=== PATIENT | female | born 1975 | race Caucasian/White ===

== ENCOUNTER 2017-06-28 20:26 | Emergency (ER) | payer OTHER ==
[2011-12-12 21:31] VITALS: BMI 32.0
[2017-06-28 20:41] LABS: APPEARANCE CLEAR (CLEAR); BILIRUBIN NEGATIVE (NEGATIVE); COLOR YELLOW (YELLOW); GLUCOSE NEGATIVE (NEGATIVE); KETONE NEGATIVE (NEGATIVE); NITRITE NEGATIVE (NEGATIVE); PROTEIN NEGATIVE (NEGATIVE); UROBILINOGEN NORMAL (NORMAL)
[2017-06-28 20:49] LABS: EPITHELIAL CELLS 0-5 /hpf (0-5); RED CELLS - URINE OCC /hpf (0-5); WHITE CELLS - URINE 0-5 /hpf (0-5)
[2017-06-28 20:50] LABS: BACTERIA MODERATE /hpf (NONE SEEN)
== END 2017-06-28 23:00 | disposition home or self-care (01) ==
LOC: D.ER 20:26
PROVIDERS: Emergency Medicine
DX: N76.0 Acute vaginitis (principal); B96.89 Other specified bacterial agents as the cause of diseases classified elsewhere

== ENCOUNTER 2017-07-21 11:50 | Emergency (ER) | payer OTHER ==
[2011-12-12 21:31] VITALS: BMI 32.0
[2017-07-21 12:27] LABS: BASOPHILS 0.2 % (0-2); EOSINOPHILS 1.4 % (0-7); HEMATOCRIT 36.8 % (36.0-48.0); HEMOGLOBIN 12.4 g/dL (12-16); IMMATURE GRANULOCYTES 0.2 % (0-5); LYMPHOCYTES 32.9 % (15-50); MCHC 33.7 g/dL (31.0-37.0); MCV 89.1 fL (80.0-100.0); MEAN PLATELET VOLUME 9.7 fL (7.4-10.4); MONOCYTES 9.8 % (2-11); NEUTROPHILS 55.5 % (40-80); PLATELET COUNT 210 10x3/uL (130-400); RBC 4.13 10x6/uL (4.00-5.40); RDW 15.5 % (11.5-14.5)
[2017-07-21 12:39] LABS: ALBUMIN 3.8 g/dL (3.4-5.0); ANION GAP 8.7 mmol/L (8-16); BILIRUBIN - TOTAL 0.4 mg/dL (0.2-1.3); CALCIUM 9.1 mg/dL (8.5-10.1); CREATININE - SERUM 0.9 mg/dL (0.6-1.3); POTASSIUM - SERUM 3.7 mmol/L (3.5-5.1); PROTEIN - SERUM 8.3 g/dL (6.4-8.2)
[2017-07-21 12:47] LABS: APPEARANCE HAZY (CLEAR); BACTERIA MODERATE /hpf (NONE SEEN); BILIRUBIN NEGATIVE (NEGATIVE); COLOR YELLOW (YELLOW); GLUCOSE NEGATIVE (NEGATIVE); KETONE NEGATIVE (NEGATIVE); MUCUS >1+ /lpf (NONE SEEN); NITRITE NEGATIVE (NEGATIVE); PROTEIN 1+ mg/dL (NEGATIVE); RED CELLS - URINE OCC /hpf (0-5); SPECIFIC GRAVITY 1.015 (1.005-1.020); WHITE CELLS - URINE RARE /hpf (0-5)
== END 2017-07-21 14:31 | disposition home or self-care (01) ==
LOC: D.ER 11:50
PROVIDERS: Emergency Medicine
DX: R10.9 Unspecified abdominal pain (principal); R11.10 Vomiting, unspecified; R11.0 Nausea; F17.200 Nicotine dependence, unspecified, uncomplicated

== ENCOUNTER 2017-11-24 02:03 | Emergency (ER) | payer SELFPAY ==
[2011-12-12 21:31] VITALS: BMI 32.0
== END 2017-11-24 03:40 | disposition home or self-care (01) ==
LOC: D.ER 02:03
DX: M62.838 Other muscle spasm (principal)

== ENCOUNTER → 2018-02-09 15:07 | Outpatient (CLI) | payer MEDICAID ==
[2011-12-12 21:31] VITALS: BMI 32.0
== END | disposition home or self-care (01) ==
LOC: D.RAD 15:07
DX: M54.14 Radiculopathy, thoracic region (principal)

== ENCOUNTER 2019-05-26 22:20 | Emergency (ER) | payer OTHER ==
[~2019-05-26] VITALS: Ht 167.6 cm; Wt 98.2 kg
[2019-05-26 22:27] VITALS: Ht 167.6 cm; Wt 98.2 kg
[2019-05-26] MEDS ORDERED: NORVASC5 MG PO (22:29)
[2019-05-27] MEDS ORDERED: TORADOL10 MG PO (01:11)
[2019-05-27 01:26] VITALS: BP 128/71
== END 2019-05-27 01:28 | disposition home or self-care (01) ==
LOC: D.ER 22:20
DX: M79.605 Pain in left leg (principal); Z86.718 Personal history of other venous thrombosis and embolism

== ENCOUNTER 2019-08-03 09:30 | Emergency (ER) | payer SELFPAY ==
[~2019-08-03] VITALS: Ht 165.1 cm; Wt 97.7 kg
[~2019-08-03 09:30] MED LIST: NORVASC5 MG PO; TORADOL10 MG PO
[2019-08-03 09:35] VITALS: Ht 165.1 cm; Wt 97.7 kg
[2019-08-03 10:32] LABS: APPEARANCE CLEAR (CLEAR); COLOR YELLOW (YELLOW)
[2019-08-03 10:33] LABS: BACTERIA FEW /hpf (NEGATIVE); BILIRUBIN NEGATIVE (NEGATIVE); EPITHELIAL CELLS OCC /hpf (0-5); GLUCOSE NEGATIVE (NEGATIVE); KETONE NEGATIVE (NEGATIVE); NITRITE NEGATIVE (NEGATIVE); PROTEIN TRACE mg/dL (NEGATIVE); RED CELLS - URINE 0-5 /hpf (0-5); UROBILINOGEN NORMAL (NORMAL); WHITE CELLS - URINE RARE /hpf (NEGATIVE)
[2019-08-03 10:36] LABS: CALC OSMOLALITY 274 mosm/kg (275-300); CALCIUM 9.3 mg/dL (8.5-10.1); CHLORIDE - SERUM 105 mmol/L (98-107); CREATININE - SERUM 0.8 mg/dL (0.6-1.3); GLUCOSE 84 mg/dL (74-106); POTASSIUM - SERUM 4.2 mmol/L (3.5-5.1); SODIUM 138 mmol/L (136-145); UREA NITROGEN 12 mg/dL (7-18); eGFR NON AFRICAN AMERICAN 82 mL/min (90-120)
[2019-08-03 10:44] LABS: ALBUMIN 3.9 g/dL (3.4-5.0); ALKALINE PHOSPHATASE 70 U/L (46-116); ALT (SGPT) 19 U/L (10-68); AMYLASE - SERUM 65 U/L (25-115); BILIRUBIN - TOTAL 0.31 mg/dL (0.2-1.3); LIPASE 100 U/L (73-393); PROTEIN - SERUM 8.2 g/dL (6.4-8.2)
[2019-08-03 10:47] LABS: TROPONIN-I < 0.017 ng/mL (0.000-0.060)
[2019-08-03 10:53] LABS: HEMATOCRIT 35.7 % (36.0-48.0); HEMOGLOBIN 11.6 g/dL (12-16); MCH 30.6 pg (26.0-34.0); MCHC 32.5 g/dL (31.0-37.0); MCV 94.2 fL (80.0-100.0); MEAN PLATELET VOLUME 9.7 fL (7.4-10.4); PLATELET COUNT 211 10x3/uL (130-400); RBC 3.79 10x6/uL (4.00-5.40); RDW 13.7 % (11.5-14.5); WBC 3.6 10x3/uL (4.8-10.8)
[2019-08-03 12:01] LABS: EOSINOPHILS 1 % (0-7); LYMPHOCYTES 50 % (15-50); MONOCYTES 6 % (2-11); NEUTROPHILS 43 % (40-80); PLATELET ESTIMATE NORMAL
[2019-08-03] MEDS ORDERED: VOLTAREN75 MG PO (12:06)
[2019-08-03] MEDS ORDERED: ZOFRAN ODT4 MG/UDTAB PO (12:06)
[2019-08-03] MEDS ORDERED: ULTRAM50 MG PO (12:06)
[2019-08-03 12:58] VITALS: BP 136/81
== END 2019-08-03 12:59 | disposition home or self-care (01) ==
LOC: D.ER 09:30
PROVIDERS: Family Medicine
DX: N23 Unspecified renal colic (principal); M54.5 Low back pain; I10 Essential (primary) hypertension; Z86.718 Personal history of other venous thrombosis and embolism

== ENCOUNTER → 2019-08-15 17:03 | Outpatient (CLI) | payer BC ==
[2019-08-03 09:35] VITALS: BMI 35.8
[~2019-08-15 17:03] MED LIST changes: +HYDROCODON-ACE1 EAC7 PO; +ULTRAM50 MG PO; +VOLTAREN75 MG PO; +ZOFRAN ODT4 MG/UDTAB PO
== END | disposition home or self-care (01) ==
LOC: D.LABREF 17:03
PROVIDERS: ATTEND Urology
DX: N20.0 Calculus of kidney (principal)

== ENCOUNTER 2019-08-18 06:57 | Inpatient (IN) | payer BC ==
[~2019-08-18] VITALS: Ht 165.1 cm; Wt 105.2 kg
[2019-08-18 07:28] LABS: HEMATOCRIT 37.1 % (36.0-48.0); HEMOGLOBIN 12.7 g/dL (12-16); MCH 31.4 pg (26.0-34.0); MCHC 34.2 g/dL (31.0-37.0); MCV 91.8 fL (80.0-100.0); MEAN PLATELET VOLUME 9.4 fL (7.4-10.4); RBC 4.04 10x6/uL (4.00-5.40); RDW 13.8 % (11.5-14.5); WBC 4.2 10x3/uL (4.8-10.8)
[2019-08-18 07:59] VITALS: BP 119/75; BMI 37.3
--- NOTE | 2019-08-18 14:59 | NUR ---
1450-REC'D FROM RR. DROWSY, EASILY AROUSED BY VERBAL STIMULI. IV PATENT TO LEFT HAND AT KVO. REPORTS CRAMPING TO ABDOMEN. WATER AT BEDSIDE. CL IN EASY REACH
--- NOTE | 2019-08-18 15:05 | NUR ---
1504- SPOKE WITH SCHEDULING TO SCHEDULE KUB FOR Aug AT 1130. HAS F/U WITH DR. CEBALLOS Aug AT 0900.
--- NOTE | 2019-08-18 17:22 | NUR ---
1700-AMBULATED TO RESTROOM AND URINATED. CONTINUE TO REPORT PAIN 10/10 TO LEFT SIDE RADIATING TO MID ABD. DESCRIBES SHARP. NOTIFIED DR. CEBALLOS WITH PAIN. NEW ORDERS REC'D. SEE EMAR.
--- NOTE | 2019-08-18 17:23 | NUR ---
5380- AWAITING CALL BACK FROM MARIE TORRESHOT PACKER FOR ROOM.
--- NOTE | 2019-08-18 18:00 | NUR ---
1755- REPORT GIVEN TO 2218 NURSE. AWAITING ON ROOM TO BE CLEANED
--- NOTE | 2019-08-18 19:00 | NUR ---
PT LAYING IN BED COMPLAING OF N/V. REPORTED THAT SHE VOMITED DURING TRANSPORTATION. ROBM CHUNCKY EMESIS NOTED IN BAG. GAVE PRN ANTIMEDIC AND CALLED MD FOR FLUIDS. A/O WITH NO SIGNS OF ACUTE DISTRESS. IV TO THE RT HAND WITH NO REDNESS OR SWELLING. STRING COVERED WITH TAPE NOTED TO THE SUPRAPUBIC AREA. DENIES NO OTHER NEEDS AT THIS TIME. WILL CONTINUE TO MONITOR.
--- NOTE | 2019-08-18 20:46 | NUR ---
COMPLAINING OF 10/10 CHEST PAIN. REPORTS THAT IT IS A CONSTANT PRESSURE AND PAIN UPON INSPIRATION. OFFERED PAIN MEDS, REFUSED. RAPID INITIATED. EKG SHOWED SINUS RHYTHM. GAVE PRN MORPHINE AFTER EDUCATING PT. TELEMETRY PLACED. ABDOMINAL IMAGING PER MD REQUEST. WILL CONTINUE TO MONITOR.
[2019-08-18 21:07] LABS: BASOPHILS 0.1 % (0-2); EOSINOPHILS 0 % (0-7); HEMATOCRIT 36.3 % (36.0-48.0); HEMOGLOBIN 12.3 g/dL (12-16); IMMATURE GRANULOCYTES 0.2 % (0-5); LYMPHOCYTES 7.9 % (15-50); MCH 31.4 pg (26.0-34.0); MCHC 33.9 g/dL (31.0-37.0); MCV 92.6 fL (80.0-100.0); MEAN PLATELET VOLUME 9.4 fL (7.4-10.4); MONOCYTES 2.5 % (2-11); NEUTROPHILS 89.3 % (40-80); PLATELET COUNT 194 10x3/uL (130-400); RBC 3.92 10x6/uL (4.00-5.40); RDW 13.6 % (11.5-14.5)
[2019-08-18 21:12] LABS: APTT 24.9 SECONDS (22.8-39.4); INR 1.05 (0.85-1.17); PROTIME 13.7 SECONDS (11.6-15.0)
[2019-08-18 21:29] LABS: ALBUMIN 3.8 g/dL (3.4-5.0); ALKALINE PHOSPHATASE 60 U/L (46-116); ALT (SGPT) 17 U/L (10-68); CALCIUM 8.6 mg/dL (8.5-10.1); CARBON DIOXIDE 25.1 mmol/L (21.0-32.0); CHLORIDE - SERUM 104 mmol/L (98-107); CKMB 0.4 U/L (0.0-3.6); CREATINE KINASE 80 UL (21-215); CREATININE - SERUM 1.1 mg/dL (0.6-1.3); POTASSIUM - SERUM 4.4 mmol/L (3.5-5.1); PROTEIN - SERUM 8.3 g/dL (6.4-8.2); SODIUM 137 mmol/L (136-145); UREA NITROGEN 18 mg/dL (7-18); eGFR NON AFRICAN AMERICAN 57 mL/min (90-120)
[2019-08-18 21:34] LABS: CALC OSMOLALITY 278 mosm/kg (275-300); GLUCOSE 147 mg/dL (74-106); TROPONIN-I < 0.017 ng/mL (0.000-0.060)
--- NOTE | 2019-08-18 22:30 | NUR ---
RESTING IN BED COMFORTABLY. REPORTS THAT HER PAIN IS 3/10. STILL HAVING SOME NAUSEA. WILL CONTINUE TO MONITOR.
[2019-08-19 00:36] VITALS: BP 148/83; BMI 38.6
[2019-08-19 04:00] VITALS: BP 167/93
--- NOTE | 2019-08-19 04:00 | NUR ---
HAVE VOMITED X9 THROUGH OUT THE NIGHT. CALLED MD FOR ANIMEDIC PATCH. ALSO COMPLAINING OF ABDOMINAL PAIN. GAVE PRN PAIN MEDS. WILL CONTINUE TO MONITOR.
--- NOTE | 2019-08-19 08:30 | NUR ---
REQUESTED AND GIVNE 3MG MORPHINE SLOW IVP FOR C/O ABDOMINAL PAIN LEVEL 8. WILL MONITOR. AWAKE AND ALERT. ORIENTED X3. LUNGS ARE CLEAR BILATERALLY, NO COUGH NOTED. SKIN IS INTACT WITHOUT REDNESS. IV TO LEFT HAND IS PATENT WITHOUT REDNESS AT INSERTION SITE. DENIES NEEDS.
--- NOTE | 2019-08-19 09:27 | OP ---
PATIENT NAME: LONA WASHINGTON MEDICAL RECORD: [id number] :73 LOCATION:[id number] ADMISSION DATE:08/18/19 SURGEON: HUGO CEBALLOS MD DATE OF OPERATION: 08/18/2019 SURGEON: Hugo Ceballos MD ANESTHESIA: General anesthesia by Tayla Vilchis CRNA DIAGNOSIS: An 8-mm left lower pole renal stone. PROCEDURE: Cystoscopy, left ureteral stent insertion 6-Wallisian x 26 cm with string attached, left ESWL times 3000 shocks. FINDINGS: Radiodense left renal stone. BLOOD LOSS: None. CLINICAL HISTORY: This is a 44-year-old female, who presented with left-sided flank pain. She had on CT scan a large stone in the left kidney that was originally obstructing the left renal pelvis. She comes now to have a left ureteral stent placed and left ESWL of the stone. 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 DESCRIPTION OF PROCEDURE: The patient was placed in prone position on the treatment table. The stone was visualized under fluoroscopy. She was then given induction of general anesthesia. She was placed in stirrups and the stone was targeted in 2 planes and treatment was begun. Cystoscopy was performed using a 21-Wallisian cystoscope. She has single ureteral orifices on both sides with no bladder tumors being visible. A Sensor wire was placed into the left ureteral orifice and up to the left renal pelvis. Over the wire, we inserted the 6-Wallisian x 26 cm ureteral stent. Once the stent was in correct position, the wire was withdrawn entirely. The proximal end was seen to coil properly in the renal pelvis. The distal end of the stent was pushed into the bladder using the pusher. The bladder was then emptied through the cystoscope sheath and the scope was removed. The string on the distal end of the stent is maintained. It was taped to the patient's suprapubic area with a piece of Tegaderm. Once the treatment was completed with 3000 shocks were given to the stone. There was seen to be good breakup of the stone. I will see the patient back in followup in 2 weeks' time with a KUB. TRANSINT:[id number] Voice Confirmation ID: [id number] DOCUMENT ID: [id number] HUGO CEBALLOS MD at 0927 CC: [id number] DICTATION DATE: 08/18/19 1400 MARKETING STRATEGY MANAGER: 08/18/19 1836 ADM IN [place] [id number] [place] [id number]
[2019-08-19 09:29] VITALS: BP 130/74
[2019-08-19 12:05] VITALS: Ht 165.1 cm; Wt 105.2 kg
[2019-08-19 12:23] VITALS: BP 123/75
[2019-08-19 16:11] VITALS: BP 118/80
--- NOTE | 2019-08-19 19:06 | NUR ---
UNABLE TO KEEP ANY FOOD DOWN. SIPPING ON A COKE. DENIES NEEDS.
--- NOTE | 2019-08-19 19:30 | NUR ---
A/O WITH NO SIGNS OF ACUTE DISTRESS. IV TO RT HAND WITH NO REDNESS OR SWELLING. STILL REPORTS PAIN IN ABDOMEN AND N/V. GAVE PRN PAIN MED. DENIES NO OTHER NEEDS AT THIS TIME. CONTINUE PLAN OF CARE.
[2019-08-19 20:00] VITALS: BP 124/84
--- NOTE | 2019-08-20 03:00 | NUR ---
SWELLING NOTED TO THE LT HAND WHERE IV IS INFUSING. DC WITH CATH INTACT. RESITED IV TO THE RT HAND. DENIES NO OTHER NEEDS AT THIS TIME. CONTINUE PLAN OF CARE.
[2019-08-20 04:00] VITALS: BP 111/66
[2019-08-20 07:50] VITALS: BP 132/80
--- NOTE | 2019-08-20 08:00 | NUR ---
ASSESSMENT PER FLOW SHEET. PT IS WITHOUT DISTRESS.
[2019-08-20] MEDS ORDERED: ZOFRAN4 MG PO (10:32)
[2019-08-20] MEDS ORDERED: LEVOFLOXACIN500 MG PO (10:33)
[2019-08-20] MEDS ORDERED: HYDROCODON-ACE1 EAC2 PO (10:34)
--- NOTE | 2019-08-20 12:27 | NUR ---
DISCAHRGE INSTRUCTIONS ,STATES UNDERSTANDING.IV DCD WITH CATH TIP INTACT.LEFT UNIT VIA AMBULATORY.PT DECLINED WHEELCHAIR. FAMILY AT SIDE.
== END 2019-08-20 12:36 | disposition home or self-care (01) | DRG 660 ==
LOC: D.OPS 06:57 → D.PAN 09:45 → D.OPS 10:30 → D.MS 19:24 → OBSVTIME 19:24 → D.MS 08-19 14:44
PROVIDERS: Anesthesiology; ADMIT Urology; ATTEND Urology
PROC: 0T778DZ Dilation of Left Ureter with Intraluminal Device, Via Natural or Artificial Opening Endoscopic (ICD-10-PCS; principal; 2019-08-18 09:45)
PROC: 0TF4XZZ Fragmentation in Left Kidney Pelvis, External Approach (ICD-10-PCS; 2019-08-18 09:45)
DX: N20.0 Calculus of kidney (principal); N10 Acute pyelonephritis; I10 Essential (primary) hypertension; B96.5 Pseudomonas (aeruginosa) (mallei) (pseudomallei) as the cause of diseases classified elsewhere

== ENCOUNTER 2019-10-07 20:40 | Emergency (ER) | payer BC ==
[~2019-10-07] VITALS: Ht 165.1 cm; Wt 103.2 kg
[~2019-10-07 20:40] MED LIST changes: +HYDROCODON-ACE1 EAC2 PO; +LEVOFLOXACIN500 MG PO; +ZOFRAN4 MG PO
[2019-10-07 20:47] VITALS: Ht 165.1 cm; Wt 103.2 kg
[2019-10-07 21:00] LABS: BASOPHILS 0.2 % (0-2); EOSINOPHILS 2.4 % (0-7); HEMATOCRIT 35.3 % (36.0-48.0); HEMOGLOBIN 11.9 g/dL (12-16); IMMATURE GRANULOCYTES 0.2 % (0-5); LYMPHOCYTES 48.9 % (15-50); MCH 31.1 pg (26.0-34.0); MCHC 33.7 g/dL (31.0-37.0); MCV 92.2 fL (80.0-100.0); MEAN PLATELET VOLUME 9.4 fL (7.4-10.4); MONOCYTES 9.5 % (2-11); NEUTROPHILS 38.8 % (40-80); RBC 3.83 10x6/uL (4.00-5.40); RDW 13.8 % (11.5-14.5); WBC 6.6 10x3/uL (4.8-10.8)
[2019-10-07 21:05] LABS: PLATELET COUNT 233 10x3/uL (130-400)
[2019-10-07 21:08] LABS: ANION GAP 13.2 mmol/L (8-16); CALCIUM 9.5 mg/dL (8.5-10.1); CARBON DIOXIDE 28.6 mmol/L (21.0-32.0); CREATININE - SERUM 0.9 mg/dL (0.6-1.3); POTASSIUM - SERUM 3.8 mmol/L (3.5-5.1)
[2019-10-07 21:13] LABS: HCG SERUM NEGATIVE (NEGATIVE)
[2019-10-07 21:14] LABS: BILIRUBIN - TOTAL 0.36 mg/dL (0.2-1.3); PROTEIN - SERUM 8.6 g/dL (6.4-8.2)
[2019-10-07 21:37] LABS: NITRITE NEGATIVE (NEGATIVE); SPECIFIC GRAVITY 1.025 (1.005-1.020)
[2019-10-07 21:38] LABS: BACTERIA MODERATE /hpf (NEGATIVE); BILIRUBIN NEGATIVE (NEGATIVE); GLUCOSE NEGATIVE (NEGATIVE); KETONE NEGATIVE (NEGATIVE); RED CELLS - URINE 0-5 /hpf (0-5); UROBILINOGEN NORMAL (NORMAL); WHITE CELLS - URINE OCC /hpf (NEGATIVE)
[2019-10-07] MEDS ORDERED: FLOMAX0.4 MG PO (21:59)
[2019-10-07] MEDS ORDERED: MACROBID100 MG PO (21:59)
[2019-10-07 22:43] VITALS: BP 138/82
== END 2019-10-07 22:43 | disposition home or self-care (01) ==
LOC: D.ER 20:40
PROVIDERS: Family Medicine
DX: R10.9 Unspecified abdominal pain (principal); I10 Essential (primary) hypertension; Z87.442 Personal history of urinary calculi